=== PATIENT | female | born 1960 | race Caucasian/White ===

== ENCOUNTER → 2018-02-20 | Outpatient (CLI) | payer BC, OTHER | LOC: M EKG 15:10 | DX: Z01.818 Encounter for other preprocedural examination (principal) | CPT/HCPCS: 93005 ==

== ENCOUNTER 2018-02-24 11:24 | Emergency (ER) | payer BC, OTHER ==
[2018-02-24 15:35] LABS: BASO # 0.1 10^3/uL (0.0-0.2); BASO % 0.7 % (0.0-1.0); EOS % 0.3 % (0.0-3.0); HEMATOCRIT 46.5 % (36.0-47.0); HEMOGLOBIN 16.9 g/dl (12.0-15.5); IMMATURE GRANULOCYTE % 0.4 % (0-3.0); LYMPH # 2.6 10^3/uL (1.5-4.5); LYMPH % 19.3 % (24.0-44.0); MEAN CORPUSCULAR HEMOGLOBIN 33.9 pg (27.0-33.0); MEAN CORPUSCULAR HGB CONC 36.3 g/dl (32.0-36.5); MEAN CORPUSCULAR VOLUME 93.2 fl (80.0-96.0); MONO # 1.5 10^3/uL (0.0-0.8); MONO % 11.2 % (0.0-5.0); NEUTROPHILS # 9.2 10^3/uL (1.8-7.7); NEUTROPHILS % 68.1 % (36.0-66.0); PLATELET COUNT, AUTOMATED 255 10^3/uL (150-450); RED BLOOD COUNT 4.99 10^6/uL (4.00-5.40); RED CELL DISTRIBUTION WIDTH 12.1 % (11.5-14.5); WHITE BLOOD COUNT 13.5 10^3/uL (4.0-10.0)
[2018-02-24 16:06] LABS: ALBUMIN 4.1 GM/DL (3.2-5.2); ALBUMIN/GLOBULIN RATIO 1.17 (1.00-1.93); ALKALINE PHOSPHATASE 89 U/L (45-117); ALT/SGPT 68 U/L (12-78); ANION GAP 11 MEQ/L (8-16); AST/SGOT 56 U/L (7-37); BILIRUBIN,DIRECT 0.3 MG/DL (0.0-0.2); BILIRUBIN,TOTAL 0.9 MG/DL (0.2-1.0); BLOOD UREA NITROGEN 9 MG/DL (7-18); CALCIUM LEVEL 9.2 MG/DL (8.5-10.1); CARBON DIOXIDE LEVEL 29 MEQ/L (21-32); CHLORIDE LEVEL 94 MEQ/L (98-107); CREATININE FOR GFR 1.02 MG/DL (0.55-1.30); GLUCOSE, FASTING 94 MG/DL (70-100); SODIUM LEVEL 134 MEQ/L (136-145); TOTAL PROTEIN 7.6 GM/DL (6.4-8.2)
[2018-02-24 16:14] LABS: POTASSIUM SERUM 2.5 MEQ/L (3.5-5.1)
[2018-02-24] MEDS: POTASSIUM CHLORIDE 10 MEQ SR TABLET PO (17:00)
[2018-02-24] MEDS: KCL 10MEQ/100ML SWI (KRUN) 10 MEQ in APPROPRIATE DILUENT 1 EA IV (17:10)
== END 2018-02-24 20:22 | disposition home or self-care (01) ==
LOC: M ED 11:24
DX: R06.4 Hyperventilation (principal); E87.6 Hypokalemia; Z79.899 Other long term (current) drug therapy; Z88.0 Allergy status to penicillin; Z88.5 Allergy status to narcotic agent; Z88.8 Allergy status to other drugs, medicaments and biological substances; F17.210 Nicotine dependence, cigarettes, uncomplicated
CPT/HCPCS: 93005

== ENCOUNTER 2018-02-26 08:34 | Day surgery (SDC) | payer BC, OTHER ==
[~2018-02-26 08:34] MED LIST: KETOROLAC 60 MG/2 ML VIAL (J1885) As Ordered; LIDOCAINE 2% INJ 100 MG/5 ML SDV (FOR ANES.) As Ordered; ONDANSETRON 4MG/2ML VIAL (J2405) As Ordered; PROPOFOL 200 MG/20 ML VIAL As Ordered; ROCURONIUM BROMIDE 50 MG/5 ML VIAL As Ordered; dexameTHASONE 4 MG/ML 1ML VIAL (J1100) As Ordered
[2018-02-26 09:03] LABS: HEMATOCRIT 44.5 % (36.0-47.0); HEMOGLOBIN 15.8 g/dl (12.0-15.5); MEAN CORPUSCULAR HEMOGLOBIN 34.3 pg (27.0-33.0); MEAN CORPUSCULAR HGB CONC 35.5 g/dl (32.0-36.5); MEAN CORPUSCULAR VOLUME 96.7 fl (80.0-96.0); PLATELET COUNT, AUTOMATED 227 10^3/uL (150-450); RED CELL DISTRIBUTION WIDTH 12.6 % (11.5-14.5); WHITE BLOOD COUNT 8.8 10^3/uL (4.0-10.0)
[2018-02-26] MEDS ORDERED: fentaNYL 250 MCG/5 ML INJECTION (J3010) As Ordered (09:20)
[2018-02-26] MEDS ORDERED: MIDAZOLAM INJ 2 MG/2 ML VIAL (J2250) As Ordered (09:20)
[2018-02-26 09:29] LABS: ANION GAP 8 MEQ/L (8-16); BLOOD UREA NITROGEN 4 MG/DL (7-18); CALCIUM LEVEL 8.2 MG/DL (8.5-10.1); CARBON DIOXIDE LEVEL 28 MEQ/L (21-32); CHLORIDE LEVEL 103 MEQ/L (98-107); CREATININE FOR GFR 0.81 MG/DL (0.55-1.30); GLOMERULAR FILTRATION RATE > 60.0 (>51); GLUCOSE, FASTING 105 MG/DL (70-100); POTASSIUM SERUM 3.3 MEQ/L (3.5-5.1); SODIUM LEVEL 139 MEQ/L (136-145)
[2018-02-26] MEDS: ACETAMINOPHEN 650 MG SUPP As Ordered (09:35)
[2018-02-26] MEDS: LR 1,000 ML IV ×3 (09:36→14:30)
[2018-02-26] MEDS: CLINDAMYCIN 900 MG in APPROPRIATE DILUENT 1 EA IV (10:05)
[2018-02-26] MEDS: ACETAMINOPHEN 650 MG SUPP PR (10:29)
[2018-02-26] MEDS ORDERED: HYDROmorphone HCL 2 MG/ML 1ML VIAL (J1170) As Ordered (10:30)
[2018-02-26] MEDS: FLUORESCEIN 10% (100MG/ML) 5 ML VIAL As Ordered (12:16)
[2018-02-26] MEDS: LIDOCAINE W/EPINEPHRINE 1% 20ML VIAL As Ordered (13:05)
[2018-02-26] MEDS ORDERED: fentaNYL 100 MCG/2 ML INJECTION (J3010) As Ordered (13:40)
[2018-02-26] MEDS: fentaNYL 100 MCG/2 ML INJECTION (J3010) IV ×4 (13:45→14:00)
[2018-02-26] MEDS: HYDROMORPHONE HCL 0.5 MG/ 0.5 ML SYRINGE (J1170 PER 1) IV ×3 (13:58→14:15)
[2018-02-26] MEDS ORDERED: PERCOCET 5MG/325MG TAB PO (14:00)
[2018-02-26] MEDS ORDERED: METOCLOPRAMIDE INJ 10MG/2ML VIAL (J2765) IV (14:00)
[2018-02-26] MEDS ORDERED: ONDANSETRON 4MG/2ML VIAL (J2405) IV (14:00)
[2018-02-26] MEDS ORDERED: SIMETHICONE 80 MG CHEW TAB PO (14:00)
[2018-02-26] MEDS: SIMETHICONE 80 MG CHEW TAB PO ×2 (18:00→23:55)
[2018-02-26] MEDS: ONDANSETRON 4MG/2ML VIAL (J2405) IV (19:13)
[2018-02-26] MEDS: METAXALONE 800 MG PO (21:46)
[2018-02-26] MEDS: OXYCODONE PO (21:47)
[2018-02-26] MEDS: ACETAMINOPHEN PO (21:47)
[2018-02-27] MEDS: SIMETHICONE 80 MG CHEW TAB PO (06:14)
[2018-02-27] MEDS: OXYCODONE PO (06:39)
[2018-02-27] MEDS: ACETAMINOPHEN PO (06:39)
[2018-02-27] MEDS: METAXALONE 800 MG PO (06:48)
== END 2018-02-27 09:12 | disposition home or self-care (01) ==
LOC: M SDC 08:34 → M PED 14:32
DX: R10.2 Pelvic and perineal pain (principal); N85.2 Hypertrophy of uterus; Z98.890 Other specified postprocedural states; N73.6 Female pelvic peritoneal adhesions (postinfective); K57.32 Diverticulitis of large intestine without perforation or abscess without bleeding; M12.9 Arthropathy, unspecified; G43.909 Migraine, unspecified, not intractable, without status migrainosus; J30.9 Allergic rhinitis, unspecified; Z88.0 Allergy status to penicillin; Z88.5 Allergy status to narcotic agent; Z88.6 Allergy status to analgesic agent; Z79.899 Other long term (current) drug therapy; Z96.643 Presence of artificial hip joint, bilateral
CPT/HCPCS: 58571

== ENCOUNTER → 2018-04-28 | Outpatient (REF) | payer BC, OTHER ==
[2018-04-28 18:29] LABS: ALBUMIN 4.2 GM/DL (3.2-5.2); ALKALINE PHOSPHATASE 88 U/L (45-117); ALT/SGPT 73 U/L (12-78); ANION GAP 14 MEQ/L (8-16); AST/SGOT 98 U/L (7-37); BILIRUBIN,TOTAL 0.9 MG/DL (0.2-1.0); BLOOD UREA NITROGEN 16 MG/DL (7-18); CALCIUM LEVEL 8.7 MG/DL (8.5-10.1); CARBON DIOXIDE LEVEL 25 MEQ/L (21-32); CHLORIDE LEVEL 95 MEQ/L (98-107); CREATININE FOR GFR 0.81 MG/DL (0.55-1.30); GLOMERULAR FILTRATION RATE > 60.0 (>51); GLUCOSE, FASTING 83 MG/DL (70-100); POTASSIUM SERUM 2.9 MEQ/L (3.5-5.1); SODIUM LEVEL 134 MEQ/L (136-145); TOTAL PROTEIN 7.7 GM/DL (6.4-8.2)
== END ==
LOC: M LAB REF 17:53
DX: E87.5 Hyperkalemia (principal)
CPT/HCPCS: 80053

== ENCOUNTER → 2018-08-28 | Outpatient (REF) | payer OTHER ==
[2018-08-28 13:24] LABS: BASO # 0.1 10^3/uL (0.0-0.2); BASO % 1.1 % (0.0-1.0); EOS # 0.2 10^3/uL (0.0-0.50); EOS % 2.3 % (0.0-3.0); HEMATOCRIT 49.2 % (36.0-47.0); HEMOGLOBIN 17.3 g/dl (12.0-15.5); IMMATURE GRANULOCYTE % 0.3 % (0-3.0); LYMPH # 3.1 10^3/uL (1.5-4.5); LYMPH % 33.7 % (24.0-44.0); MEAN CORPUSCULAR HEMOGLOBIN 33.9 pg (27.0-33.0); MEAN CORPUSCULAR HGB CONC 35.2 g/dl (32.0-36.5); MEAN CORPUSCULAR VOLUME 96.5 fl (80.0-96.0); MONO % 10.9 % (0.0-5.0); NEUTROPHILS # 4.7 10^3/uL (1.8-7.7); NEUTROPHILS % 51.7 % (36.0-66.0); PLATELET COUNT, AUTOMATED 299 10^3/uL (150-450); RED CELL DISTRIBUTION WIDTH 12.5 % (11.5-14.5); WHITE BLOOD COUNT 9.2 10^3/uL (4.0-10.0)
[2018-08-28 13:31] LABS: ALBUMIN 4.4 GM/DL (3.2-5.2); ALBUMIN/GLOBULIN RATIO 1.38 (1.00-1.93); ALKALINE PHOSPHATASE 86 U/L (45-117); ALT/SGPT 73 U/L (12-78); ANION GAP 12 MEQ/L (8-16); AST/SGOT 78 U/L (7-37); BILIRUBIN,TOTAL 0.8 MG/DL (0.2-1.0); BLOOD UREA NITROGEN 10 MG/DL (7-18); CALCIUM LEVEL 10.1 MG/DL (8.8-10.2); CARBON DIOXIDE LEVEL 29 MEQ/L (21-32); CHLORIDE LEVEL 95 MEQ/L (98-107); CREATININE FOR GFR 1.06 MG/DL (0.55-1.30); GLOMERULAR FILTRATION RATE 56.3 (>45); GLUCOSE, FASTING 117 MG/DL (70-100); SODIUM LEVEL 136 MEQ/L (136-145); TOTAL PROTEIN 7.6 GM/DL (6.4-8.2)
== END ==
LOC: M LAB REF 13:05
DX: R53.83 Other fatigue (principal); E87.6 Hypokalemia
CPT/HCPCS: 80053

== ENCOUNTER → 2018-12-19 | Outpatient (CLI) | payer BC, OTHER ==
[~2018-12-19] MED LIST changes: +ALBU17IN2 INH; +COUM2.5T17 PO; +DYAZ37.5 PO; +EXLAX OR; +FISH OIL OMEGA OR; +FLON1SPR; +K-TA1TAB PO; -KETOROLAC 60 MG/2 ML VIAL (J1885) As Ordered; -LIDOCAINE 2% INJ 100 MG/5 ML SDV (FOR ANES.) As Ordered; +MOME50SP; +MULTCAP PO; +NASA1SPR; +NYQUIL COLD AND FLU OR; -ONDANSETRON 4MG/2ML VIAL (J2405) As Ordered; +PERC5TAB12 PO; +PHEN-239 PO; +POTA99TA PO; -PROPOFOL 200 MG/20 ML VIAL As Ordered; -ROCURONIUM BROMIDE 50 MG/5 ML VIAL As Ordered; +SKEL800T97 PO; +TYLE325T5 PO; +ZITH500T PO; +calcium with D PO; -dexameTHASONE 4 MG/ML 1ML VIAL (J1100) As Ordered; +zyrtec PO
[2018-12-19 13:18] LABS: HEMATOCRIT 46.8 % (36.0-47.0); HEMOGLOBIN 16.2 g/dl (12.0-15.5); MEAN CORPUSCULAR HEMOGLOBIN 34.2 pg (27.0-33.0); MEAN CORPUSCULAR HGB CONC 34.6 g/dl (32.0-36.5); MEAN CORPUSCULAR VOLUME 98.9 fl (80.0-96.0); PLATELET COUNT, AUTOMATED 259 10^3/uL (150-450); RED BLOOD COUNT 4.73 10^6/uL (4.00-5.40); WHITE BLOOD COUNT 9.1 10^3/uL (4.0-10.0)
[2018-12-19 13:34] LABS: HEMOGLOBIN A1c 5.9 %
--- NOTE | 2018-12-19 13:54 | REP ---
Chest x-ray: Two views. History: Hypertension. Comparison study: September 06, 2015. Findings: The lungs are symmetrically aerated and clear. Pleural angles are sharp. Heart size is normal. There are degenerative changes in the mid thoracic spine mild in degree. The aorta slightly tortuous. Impression: No active disease. Electronically Signed by Aguilar Greenwood MD 12/19/2018 06:23 P
[2018-12-19 14:54] LABS: ALBUMIN 3.9 GM/DL (3.2-5.2); ALT/SGPT 63 U/L (12-78); BILIRUBIN,TOTAL 0.9 MG/DL (0.2-1.0); BLOOD UREA NITROGEN 12 MG/DL (7-18); CALCIUM LEVEL 8.8 MG/DL (8.8-10.2); CARBON DIOXIDE LEVEL 30 MEQ/L (21-32); CHLORIDE LEVEL 99 MEQ/L (98-107); CHOLESTEROL LEVEL 255 MG/DL (<200); CHOLESTEROL RISK RATIO 2.965 (<5); CREATININE FOR GFR 0.87 MG/DL (0.55-1.30); GLOMERULAR FILTRATION RATE > 60.0 (>45); GLUCOSE, FASTING 95 MG/DL (70-100); HDL CHOLESTEROL 86 MG/DL (>40); LDL CHOLESTEROL 141 MG/DL (<100); NON-HDL-C 169 MG/DL; POTASSIUM SERUM 3.3 MEQ/L (3.5-5.1); SODIUM LEVEL 140 MEQ/L (136-145); TOTAL 25(OH) VITAMIN D 14.4 NG/ML (30.0-100.0); TOTAL PROTEIN 7.3 GM/DL (6.4-8.2); TRIGLYCERIDES LEVEL 139 MG/DL (<150)
--- NOTE | 2018-12-20 17:39 | ECGEPIP ---
Stationary ECG Study [facility] Test Date: 2018-12-19 Pat Name: NAVIN CHEEMA Department: Room: - Gender: F Machine Design Engineer: YVONNE : 1960 Requested By: Ale Herrera Order Number: [id number] Reading MD: Regulo Lowry Measurements Intervals [place] Rate: 99 P: 55 NC: 169 QRS: 3 QRSD: 78 T: 52 QT: 356 QTc: 457 Interpretive Statements SINUS RHYTHM POSSIBLE LEFT ATRIAL ENLARGEMENT Low QRS complex voltage in the precordial leads Artifact Electronically Signed On 12-20-2018 17:39:27 EST by Regulo Lowry
== END ==
LOC: M LAB 12:10
PROVIDERS: ATTEND Family Medicine
DX: I10 Essential (primary) hypertension (principal); E03.9 Hypothyroidism, unspecified

== ENCOUNTER → 2018-12-31 | Outpatient (CLI) | payer BC, OTHER ==
[~2018-12-31] MED LIST changes: +E-Z-GAS II EFFERVESCENT PACKET (SODIUM BICARB./CITRIC ACID/SIMETHICONE) As Ordered ONE; +E-Z-HD 98% w/w 340GM SUSP BTL As Ordered ONE; +E-Z-PAQUE 96% w/w SUSP 176GM BTL As Ordered ONE
--- NOTE | 2018-12-31 11:36 | REP ---
Examination of upper GI series with KUB. Reason for exam: Epigastric pain. Upper GI with air contrast: The procedure was performed under the personal supervision of Dr. Greenwood. The images were reviewed with Dr. Greenwood. The distribution designer film shows no organomegaly or pathological masses. Bilateral hip replacements are noted. The intestinal gas pattern is unremarkable. Liquid barium and gas producing crystals were given in the erect as well as liquid barium in the prone oblique position in order to perform a double contrast upper GI examination. The oral and pharyngeal stages of deglutition are unremarkable. Esophageal transport is prominent and efficient. There is no esophagitis or stricture noted. Distal esophageal ulceration is noted. Suggest clinical correlation with endoscopy. Gastroesophageal reflux noted to the level of the sid, as well as a small hiatal hernia. The stomach bragg are normally outlined. The rugal folds are smooth and regular. There is no gastritis, neoplasm, or ulcer disease. The duodenal bulb is normally outlined and the mucosal folds are smooth and regular. The post bulbar duodenal does however demonstrate some mucosal fold thickening with no ulcers noted. Impression: 1. Esophageal reflux noted to the level of the sid. 2. Distal esophageal mucosal ulceration, suggest endoscopy for further clinical correlation. 3. Post bulbar duodenal fold thickening with no ulcer noted. Reviewed by ZAHRA Alvarado 12/31/2018 11:21 A Electronically Signed by Aguilar Greenwood MD 12/31/2018 11:27 A
--- NOTE | 2019-01-01 07:26 | REP ---
Clinical: Epigastric pain. Technique: Real time waller scale ultrasound examination using curved array transducer. Findings: Liver is increased echogenicity with poor through transmission suggesting fatty infiltration. No focal hepatic lesion identified. Pancreas is incompletely evaluated due to interposed bowel gas. The gallbladder demonstrates small amount of layering sludge without wall thickening or pericholecystic fluid. No sonographic Loja's sign. No biliary ductal dilatation is appreciated and the common bile duct measures 4.6 mm diameter. The right kidney is normal in reniform shape without hydronephrosis and measures 10.2 x 5.5 x 4.4 cm. No ascites. Impression: 1. Hepatic steatosis. 2. Small amount of layering sludge in the gallbladder. No evidence for cholecystitis. Electronically Signed by Kwesi Lang MD 01/01/2019 07:17 A
== END ==
LOC: M RAD 09:36
PROVIDERS: ATTEND Family Medicine
DX: R10.13 Epigastric pain (principal); K44.9 Diaphragmatic hernia without obstruction or gangrene; K21.9 Gastro-esophageal reflux disease without esophagitis; K22.10 Ulcer of esophagus without bleeding

== ENCOUNTER → 2019-01-18 | Outpatient (CLI) | payer BC, OTHER ==
[~2019-01-18] MED LIST changes: -E-Z-GAS II EFFERVESCENT PACKET (SODIUM BICARB./CITRIC ACID/SIMETHICONE) As Ordered ONE; -E-Z-HD 98% w/w 340GM SUSP BTL As Ordered ONE; -E-Z-PAQUE 96% w/w SUSP 176GM BTL As Ordered ONE
--- NOTE | 2019-01-18 17:03 | REP ---
Clinical: Hand pain. Technique: AP, lateral, bilateral oblique views of the right hand. Findings: Generalized age-related osteoarthritic degenerative changes primarily involving the distal interphalangeal joints noted. No acute fracture dislocation. No subcutaneous emphysema or radiodense foreign body. Impression: Arthritic degenerative changes. Electronically Signed by Kwesi Lang MD 01/18/2019 04:55 P
--- NOTE | 2019-01-18 17:08 | REP ---
Clinical: Pain Technique: AP, lateral, bilateral oblique views right wrist . Findings: The carpal bones, surrounding osseous structures, soft tissues, and joint spaces are normal. There is no evidence for acute fracture or dislocation. No subcutaneous emphysema or radiodense foreign body. Impression: Generalized age-related changes. No acute fracture or dislocation. Electronically Signed by Kwesi Lang MD 01/18/2019 05:00 P
== END ==
LOC: M WUC 16:21
PROVIDERS: ATTEND Physician Assistant
DX: S60.211A Contusion of right wrist, initial encounter (principal); S60.221A Contusion of right hand, initial encounter; M19.041 Primary osteoarthritis, right hand; M19.031 Primary osteoarthritis, right wrist; X58.XXXA Exposure to other specified factors, initial encounter; Y92.89 Other specified places as the place of occurrence of the external cause

== ENCOUNTER 2019-03-23 12:12 | Day surgery (SDC) | payer BC, OTHER ==
[~2019-03-23] VITALS: Ht 165.1 cm; Wt 8.2 kg
[~2019-03-23 12:12] MED LIST changes: +ACET1TAB55 PO; +CETI10CA2 PO; +GNP250TA9 PO; +NS 1,000 ML IV ONE; +PRIL20TA2 PO; +VITA1CAP25 PO
[2019-03-23] MEDS ORDERED: PROPOFOL 500 MG/50 ML VIAL As Ordered ONE (13:46)
[2019-03-23] MEDS ORDERED: LIDOCAINE 2% INJ 100 MG/5 ML SDV (FOR ANES.) As Ordered ONE (13:46)
[2019-03-23] MEDS ORDERED: fentaNYL 100 MCG/2 ML INJECTION (J3010) As Ordered ONE (13:46)
--- NOTE | 2019-03-23 14:03 | ROOR ---
Patient Name: Corina Garcia Procedure Date: 03/23/2019 1:45 PM Date of : 1960 Age: 58 Room: [facility] Gender: Female Note Status: Finalized Procedure: Upper Endoscopy + Biopsies Indications: Heartburn, Exclusion of Trent's esophagus, Abnormal UGI series Providers: Horace Leigh MD Referring MD: ALEJANDRINA SANCHEZ MD Requesting Provider: Medicines: Monitored Anesthesia Care Complications: No immediate complications. Procedure: Pre-Anesthesia Assessment: - The heart rate, respiratory rate, oxygen saturations, blood pressure, adequacy of pulmonary ventilation, and response to care were monitored throughout the procedure. The Endoscope was introduced through the mouth, and advanced to the second part of duodenum. The upper GI endoscopy was accomplished without difficulty. The patient tolerated the procedure well. Findings: The Z-line was irregular and was found 40 cm from the incisors. Multiple biopsies were obtained with cold forceps for evaluation to rule out Trent's Esophagus randomly at the gastroesophageal junction. A small hiatal hernia was present. No other significant abnormalities were identified in a careful examination of the stomach. The exam of the duodenum was otherwise normal. Impression: - Z-line irregular, 40 cm from the incisors. - Small hiatal hernia. - Multiple biopsies were obtained at the gastroesophageal junction. - The examination was otherwise normal. Recommendation: - Patient has a contact number available for emergencies. The signs and symptoms of potential delayed complications were discussed with the patient. Return to normal activities tomorrow. Written discharge instructions were provided to the patient. - High fiber diet. - Discharge patient to home. - Follow an antireflux regimen. - Use Prilosec (omeprazole) 40 mg PO daily. - Return to referring physician. - Telephone GI clinic for pathology results in 1 week. - Repeat upper endoscopy for surveillance based on pathology results. - The findings and recommendations were discussed with the patient's family. Horace Leigh MD Horace Leigh MD 03/23/2019 2:02:45 PM Electronically signed by Horace Leigh MD Number of Addenda: 0 Note Initiated On: 03/23/2019 1:45 PM Estimated Blood Loss: Estimated blood loss: none.
--- NOTE | 2019-03-23 14:20 | ROOR ---
Patient Name: Corina Garcia Procedure Date: 03/23/2019 1:46 PM Date of : 1960 Age: 58 Room: [facility] Gender: Female Note Status: Finalized Procedure: Total Colonoscopy to Cecum + Biopsy Polypectomy Indications: High risk colon cancer surveillance: Personal history of colonic polyps, Last colonoscopy 10 years ago Providers: Horace Leigh MD Referring MD: ALEJANDRINA SANCHEZ MD Requesting Provider: Medicines: Monitored Anesthesia Care Complications: No immediate complications. Procedure: Pre-Anesthesia Assessment: - The heart rate, respiratory rate, oxygen saturations, blood pressure, adequacy of pulmonary ventilation, and response to care were monitored throughout the procedure. The Colonoscope was introduced through the anus and advanced to the cecum, identified by appendiceal orifice and ileocecal valve. The colonoscopy was performed without difficulty. The patient tolerated the procedure well. The quality of the bowel preparation was good. Findings: The perianal and digital rectal examinations were normal. Non-bleeding internal hemorrhoids were found during retroflexion. The hemorrhoids were small and Grade I (internal hemorrhoids that do not prolapse). A diffuse area of mild melanosis was found in the entire colon. A small polyp was found at 50 cm proximal to the anus. The polyp was sessile. The polyp was removed with a jumbo cold forceps. Resection and retrieval were complete. The exam was otherwise without abnormality on direct and retroflexion views. Impression: - Non-bleeding internal hemorrhoids. - Melanosis in the colon. - One small polyp at 50 cm proximal to the anus, removed with a jumbo cold forceps. Resected and retrieved. - The examination was otherwise normal on direct and retroflexion views. - The exam was otherwise normal to the cecum. Recommendation: - Patient has a contact number available for emergencies. The signs and symptoms of potential delayed complications were discussed with the patient. Return to normal activities tomorrow. Written discharge instructions were provided to the patient. - High fiber diet. - Discharge patient to home. - Continue present medications. - Await pathology results. - Telephone GI clinic for pathology results in 1 week. - Repeat colonoscopy in 5 years for surveillance. - Return to referring physician. - Check Portal Online for Path Results.([email or web address]) - The findings and recommendations were discussed with the patient's family. Horace Leigh MD Horace Leigh MD 03/23/2019 2:20:08 PM Electronically signed by Horace Leigh MD Number of Addenda: 0 Note Initiated On: 03/23/2019 1:46 PM Estimated Blood Loss: Estimated blood loss: none.
[2019-03-23 14:50] VITALS: BP 149/109
== END 2019-03-23 15:04 | disposition home or self-care (01) ==
LOC: M OPP 12:12
PROVIDERS: ATTEND Internal Medicine Gastroenterology
DX: Z12.11 Encounter for screening for malignant neoplasm of colon (principal); Z86.010 Personal history of colon polyps; K64.0 First degree hemorrhoids; K63.89 Other specified diseases of intestine; D12.6 Benign neoplasm of colon, unspecified; K22.8 Other specified diseases of esophagus; K44.9 Diaphragmatic hernia without obstruction or gangrene; R12 Heartburn; R93.3 Abnormal findings on diagnostic imaging of other parts of digestive tract; Z79.891 Long term (current) use of opiate analgesic; Z79.899 Other long term (current) drug therapy; Z88.0 Allergy status to penicillin; Z88.8 Allergy status to other drugs, medicaments and biological substances; Z87.891 Personal history of nicotine dependence
CPT/HCPCS: 43239; 45380; 88305; J3010

== ENCOUNTER → 2019-08-05 | Outpatient (CLI) | payer BC, OTHER ==
[~2019-08-05] MED LIST changes: -NS 1,000 ML IV ONE; +PROV108A INH
--- NOTE | 2019-08-05 15:34 | REP ---
MRI cervical spine: 08/05/2019. Indication: Cervical radiculopathy. Comparison: None. Technique: Multiplanar short and long TR sequences of the cervical spine were performed. Findings: There is straightening of the cervical lordosis. Very minimal retrolisthesis of C5 and C6 is noted. No worrisome marrow signal is present. The visualized cord is normal. The vertebral artery flow voids are unremarkable. C2 /C3 and C3/C4: Unremarkable. C4/C5: Minimal diffuse disc bulge is present without significant spinal canal or neural foraminal narrowing. C5/C6: Diffuse disc bulge is present with mild effacement of the ventral thecal sac and mild to moderate narrowing of the neural foramen. C6/C7 and C7/T1: Unremarkable. Impression: Relatively mild degenerative sequelae of the cervical spine most pronounced at C5/C6. Electronically Signed by Omer Byrne DO 08/05/2019 03:26 P
== END ==
LOC: M RAD 13:24
PROVIDERS: ATTEND Physician Assistant
DX: M50.322 Other cervical disc degeneration at C5-C6 level (principal)

== ENCOUNTER → 2019-10-28 | Outpatient (CLI) | payer BC, OTHER ==
--- NOTE | 2019-10-29 07:16 | REP ---
CHEST X-RAY: Two views. HISTORY: Rule out pneumonia. COMPARISON STUDY: December 19, 2018. FINDINGS: The lungs are well inflated and clear. The pleural angles are sharp. Heart size is normal. No significant bony abnormality. IMPRESSION: No active disease. Electronically Signed by Aguilar Greenwood MD 10/29/2019 09:32 A
== END ==
LOC: M RAD 09:29
PROVIDERS: ATTEND Family Medicine
DX: J18.0 Bronchopneumonia, unspecified organism (principal)

== ENCOUNTER → 2019-11-06 | Outpatient (CLI) | payer BC, OTHER | LOC: M LAB 11:52 | PROVIDERS: ATTEND Physician Assistant | DX: R60.9 Edema, unspecified (principal) ==

== ENCOUNTER → 2019-11-17 | Outpatient (CLI) | payer BC, OTHER ==
[~2019-11-17] MED LIST changes: +GASTROGRAFIN SOLUTION 30ML (Q9963) As Ordered ONE; +ISOVUE-370 76% 100ML VIAL (Q9967) As Ordered ONE
--- NOTE | 2019-11-18 06:29 | REP ---
Clinical: Right upper quadrant mass with epigastric pain. Technique: Axial contrast enhanced images from the lung bases to the pubic symphysis using oral (per protocol) and 100 ml Isovue 370 intravenous contrast material with delayed images of the abdomen as well as coronal and sagittal re-formations. Comparison: 07/03/2011. Findings: Mild fatty infiltration to the liver suggested. Spleen, pancreas, gallbladder, bilateral adrenal glands and kidneys are normal. The enteric system is without obstruction or acute inflammatory process. Sigmoid diverticulosis noted without acute diverticulitis. Evaluation of the pelvis is significantly limited due to beam-hardening artifact from bilateral hip prostheses. No obvious ascites. No adenopathy. No free air. Abdominal aorta and vasculature without aneurysm or dissection. Osseous structures without focal abnormality noted. Lung bases are clear. Impression: 1. Mild hepatic steatosis without focal hepatic lesion. 2. Sigmoid diverticulosis without acute diverticulitis. 3. Incomplete evaluation of the pelvis due to beam-hardening artifact from hip replacements. 4. No ascites. No adenopathy. No free air. No focal inflammatory stranding. Electronically Signed by Kwesi Lang MD 11/18/2019 06:20 A
== END ==
LOC: M RAD 14:42
PROVIDERS: ATTEND Family Medicine
DX: R10.13 Epigastric pain (principal)
CPT/HCPCS: 74177; Q9963; Q9967

== ENCOUNTER → 2019-11-19 | Outpatient (CLI) | payer BC, OTHER ==
[~2019-11-19] MED LIST changes: -GASTROGRAFIN SOLUTION 30ML (Q9963) As Ordered ONE; -ISOVUE-370 76% 100ML VIAL (Q9967) As Ordered ONE
[2019-11-19 12:52] LABS: HEMATOCRIT 50.7 % (36.0-47.0); HEMOGLOBIN 16.6 g/dl (12.0-15.5); MEAN CORPUSCULAR HEMOGLOBIN 33.5 pg (27.0-33.0); MEAN CORPUSCULAR HGB CONC 32.7 g/dl (32.0-36.5); MEAN CORPUSCULAR VOLUME 102.4 fl (80.0-96.0); PLATELET COUNT, AUTOMATED 239 10^3/uL (150-450); RED BLOOD COUNT 4.95 10^6/uL (4.00-5.40); WHITE BLOOD COUNT 11.3 10^3/uL (4.0-10.0)
[2019-11-19 13:26] LABS: HEMOGLOBIN A1c 6.4 %
[2019-11-19 13:31] LABS: ALBUMIN 4.1 GM/DL (3.2-5.2); ALT/SGPT 111 U/L (12-78); BILIRUBIN,TOTAL 0.8 MG/DL (0.2-1.0); BLOOD UREA NITROGEN 9 MG/DL (7-18); CARBON DIOXIDE LEVEL 27 MEQ/L (21-32); CHLORIDE LEVEL 99 MEQ/L (98-107); CHOLESTEROL LEVEL 264 MG/DL (<200); CREATININE FOR GFR 0.98 MG/DL (0.55-1.30); GLOMERULAR FILTRATION RATE > 60.0 (>45); GLUCOSE, FASTING 114 MG/DL (70-100); HDL CHOLESTEROL 66 MG/DL (>40); IRON (FE) 156 UG/DL (50-170); LDL CHOLESTEROL 169 MG/DL (<100); NON-HDL-C 198 MG/DL; PERCENT SATURATION 45.7 % (13.2-45.0); POTASSIUM SERUM 3.6 MEQ/L (3.5-5.1); SODIUM LEVEL 137 MEQ/L (136-145); THYROXINE (T4) 14.5 UG/DL (4.5-12.0); TOTAL IRON BINDING CAPACITY 341 UG/DL (250-450); TOTAL PROTEIN 7.5 GM/DL (6.4-8.2); TRIGLYCERIDES LEVEL 147 MG/DL (<150)
[2019-11-19 13:38] LABS: TOTAL 25(OH) VITAMIN D 51.4 NG/ML (30.0-100.0); TOTAL T3 126.6 NG/DL (60.0-181.0)
== END ==
LOC: M LAB 11:31
PROVIDERS: ATTEND Family Medicine
DX: D64.9 Anemia, unspecified (principal); R53.83 Other fatigue; E03.9 Hypothyroidism, unspecified

== ENCOUNTER → 2019-11-26 | Outpatient (REF) | payer OTHER | LOC: M LAB REF 16:24 | PROVIDERS: ATTEND Physician Assistant | DX: J02.9 Acute pharyngitis, unspecified (principal) ==

== ENCOUNTER → 2019-12-01 | Outpatient (CLI) | payer BC, OTHER ==
[~2019-12-01] MED LIST changes: +E-Z-GAS II EFFERVESCENT PACKET (SODIUM BICARB./CITRIC ACID/SIMETHICONE) As Ordered ONE; +E-Z-HD 98% w/w 340GM SUSP BTL As Ordered ONE; +E-Z-PAQUE 96% w/w SUSP 176GM BTL As Ordered ONE
--- NOTE | 2019-12-01 16:54 | REP ---
Examination Requested: Upper G.I. Series With KUB Reason For Exam: Esophageal ulcer, hiatal hernia Upper GI Air Contrast The procedure was performed by ZAHRA Means, under the direct supervision of Dr. Greenwood. The images were reviewed with Dr. Greenwood. The human resources operations coordinator film shows no organomegaly or pathological masses. The intestinal gas pattern appears normal. Bilateral hip arthroplasty. Liquid barium and gas producing crystals were given in the erect position as well as liquid barium in the prone position in order to perform a double contrast upper GI examination. The oral and pharyngeal stages of deglutition were unremarkable. Esophageal transport is efficient and there is no esophagitis, stricture, or mucosal ring noted. There is a hiatal hernia. Gastroesophageal reflux to the distal esophagus was visualized. The stomach bragg are normally outlined. The rugal folds are smooth and regular. There is no gastritis, neoplasm, ulcer disease noted. The duodenal bragg are normally outlined. The mucosal folds are smooth and regular. There is no duodenitis, peptic ulcer disease, or neoplasm noted. The visualized portion of the proximal small bowel appears normal in course and caliber. Incidental note is made of contrast in the colon prior to the end of the exam. Impression: 1. Small hiatal hernia. 2. Gastroesophageal reflux to the distal esophagus. 3. Incidental note of short transit time between ingestion of contrast and contrast visualized in the colon. 1.0 minutes of fluoroscopy time was utilized for this procedure. Some fluoroscopic images are performed with last image hold technology. These images require no additional radiation. Reviewed by ZAHRA Alvarado 12/01/2019 03:50 P Electronically Signed by Aguilar Greenwood MD 12/01/2019 04:46 P
== END ==
LOC: M RAD 07:38
PROVIDERS: ATTEND Family Medicine
DX: K22.10 Ulcer of esophagus without bleeding (principal)

== ENCOUNTER → 2021-04-08 | Outpatient (CLI) | payer BC, OTHER ==
[~2021-04-08] MED LIST changes: -E-Z-GAS II EFFERVESCENT PACKET (SODIUM BICARB./CITRIC ACID/SIMETHICONE) As Ordered ONE; -E-Z-HD 98% w/w 340GM SUSP BTL As Ordered ONE; -E-Z-PAQUE 96% w/w SUSP 176GM BTL As Ordered ONE
--- NOTE | 2021-04-08 16:43 | REPVR ---
PROCEDURE INFORMATION: Exam: MR Lumbar Spine Without Contrast Exam date and time: 04/08/2021 2:54 PM Age: 60 years old Clinical indication: Low back pain TECHNIQUE: Imaging protocol: Multiplanar magnetic resonance images of the lumbar spine without intravenous contrast. COMPARISON: CT ABD PELVIS WITH CONTRAST 11/17/2019 4:40 PM FINDINGS: Vertebral body heights are maintained. Heterogeneous areas of fatty marrow signal. No cord compression. No abnormal cord signal. Conus medullaris terminates at the L1-L2 level. Paravertebral soft tissues are unremarkable. L1-L2: No significant canal or foraminal narrowing. L2-L3: No significant canal or foraminal narrowing. L3-L4: No significant canal or foraminal narrowing. L4-L5: Facet hypertrophy causes mild bilateral foraminal narrowing. No significant canal narrowing. L5-S1: Broad-based disc bulge and facet hypertrophy cause mild canal narrowing and mild bilateral foraminal narrowing. IMPRESSION: Mild spondylotic changes of the lower lumbar spine, as detailed above. Electronically signed by: Marlon Reese On 04/08/2021 16:42:59 PM
== END ==
LOC: M RAD 13:34
PROVIDERS: ATTEND Physician Assistant
DX: M47.816 Spondylosis without myelopathy or radiculopathy, lumbar region (principal)

== ENCOUNTER → 2023-06-05 | Outpatient (CLI) | payer BC, OTHER ==
[~2023-06-05] MED LIST changes: +ALBU6.7H6 INH; -MOME50SP; +NASO50SP3; -PROV108A INH
== END ==
LOC: M RAD 08:19
PROVIDERS: ATTEND Family Medicine
DX: E04.1 Nontoxic single thyroid nodule (principal); R22.0 Localized swelling, mass and lump, head

== ENCOUNTER → 2023-07-30 | Outpatient (CLI) | payer BC, OTHER | LOC: M WHC 10:45 | PROVIDERS: ATTEND Obstetrics & Gynecology | DX: Z12.31 Encounter for screening mammogram for malignant neoplasm of breast (principal); Z13.820 Encounter for screening for osteoporosis ==

== ENCOUNTER 2023-12-09 12:30 | Day surgery (SDC) | payer BC, OTHER ==
[~2023-12-09] VITALS: Ht 162.6 cm; Wt 90.7 kg
[~2023-12-09 12:30] MED LIST changes: +ADIP37.55 PO; +ERGO500029 PO; +FLUTISP; +LEVO100T5 PO; +LIDOCAINE 2% 100MG/5ML SDV (FOR ANES.) As Ordered ONE; +METF500T13 PO; +OMEP40CA5 PO; +POTA-141 PO; +PRED10PA PO; +SIMV20TA22 PO; +THERTAB52 PO; +TRIA37.577 PO; +VALA1TAB5; +fentaNYL 100 MCG/2 ML INJECTION As Ordered ONE; +propofoL 500 MG/50 ML VIAL As Ordered ONE
[2023-12-09] MEDS: NS 1,000 ML IV ONE (13:07)
[2023-12-09 14:13] VITALS: TEMP 96.6
[2023-12-09] MEDS ORDERED: SIMETHICONE 40MG/0.6ML DROPS 30ML As Ordered ONE (14:22)
[2023-12-09 14:35] VITALS: BP 148/66; O2SAT 97
== END 2023-12-09 14:42 | disposition home or self-care (01) ==
LOC: M OPP 12:30
PROVIDERS: ATTEND Internal Medicine Gastroenterology
DX: Z12.11 Encounter for screening for malignant neoplasm of colon (principal); Z86.010 Personal history of colon polyps; K64.0 First degree hemorrhoids; K63.89 Other specified diseases of intestine; K22.70 Barrett's esophagus without dysplasia; K44.9 Diaphragmatic hernia without obstruction or gangrene; F17.200 Nicotine dependence, unspecified, uncomplicated; E03.9 Hypothyroidism, unspecified; J44.9 Chronic obstructive pulmonary disease, unspecified; Z79.02 Long term (current) use of antithrombotics/antiplatelets; Z79.52 Long term (current) use of systemic steroids; Z79.84 Long term (current) use of oral hypoglycemic drugs; Z79.890 Hormone replacement therapy; Z79.899 Other long term (current) drug therapy; R73.03 Prediabetes; Z88.0 Allergy status to penicillin; Z88.5 Allergy status to narcotic agent; Z88.6 Allergy status to analgesic agent
CPT/HCPCS: 43239; 45378; 88305; J3010

== ENCOUNTER → 2024-01-27 | Outpatient (CLI) | payer BC ==
[~2024-01-27] MED LIST changes: -LIDOCAINE 2% 100MG/5ML SDV (FOR ANES.) As Ordered ONE; -fentaNYL 100 MCG/2 ML INJECTION As Ordered ONE; -propofoL 500 MG/50 ML VIAL As Ordered ONE
== END ==
LOC: M RAD 12:30
PROVIDERS: ATTEND Otolaryngology
DX: R22.1 Localized swelling, mass and lump, neck (principal)

== ENCOUNTER → 2024-03-23 | Outpatient (CLI) | payer BC | LOC: M RAD 10:15 | PROVIDERS: ATTEND Otolaryngology | DX: R22.1 Localized swelling, mass and lump, neck (principal) ==

== ENCOUNTER → 2024-05-29 | Outpatient (CLI) | payer BC | LOC: M WHC 07:07 | PROVIDERS: ATTEND Family Medicine | DX: R19.06 Epigastric swelling, mass or lump (principal); K76.0 Fatty (change of) liver, not elsewhere classified ==

== ENCOUNTER → 2025-01-26 | Outpatient (REF) | payer OTHER | LOC: M LAB REF 14:09 | PROVIDERS: ATTEND Physician Assistant Medical | DX: J02.9 Acute pharyngitis, unspecified (principal); B34.9 Viral infection, unspecified ==

== ENCOUNTER → 2025-07-20 | Outpatient (REF) | payer OTHER ==
[~2025-07-20] MED LIST changes: -PHEN-239 PO; +PHEN37.511 PO
== END ==
LOC: M LAB REF 16:56
PROVIDERS: ATTEND Physician Assistant
DX: B34.9 Viral infection, unspecified (principal)

== ENCOUNTER → 2025-10-11 | Outpatient (CLI) | payer BC, OTHER | LOC: M RAD 10:05 | DX: M54.2 Cervicalgia (principal); M25.511 Pain in right shoulder; M25.512 Pain in left shoulder; M75.31 Calcific tendinitis of right shoulder; M47.812 Spondylosis without myelopathy or radiculopathy, cervical region ==